=== PATIENT | male | born 1995 | race Caucasian/White ===

== ENCOUNTER 2016-05-28 19:22 | Emergency (ER) | payer OTHER ==
[~2016-05-28 19:22] MED LIST: AMOX50SS
--- NOTE | 2016-05-28 21:00 | REPUSA ---
CT of the cervical spine Clinical history: Pain. Trauma. Technique: Multiple axial CT images were obtained through the cervical spine without administration o f contrast. Coronal and sagittal 3-D reconstructed images were also obtained. Comparison: None. Findings: The cervical vertebral bodies are in satisfactory positioning and alignment. No fractures or dislocat ions are demonstrated. The odontoid process is intact. Intervertebral disc spaces are well-maintained . There is no evidence of facet subluxation. The neural foramen appear grossly patent. The cervical c ranial junction is intact. The cervical spinal canal demonstrates normal caliber and contour without evidence of spinal stenosis. The surrounding soft tissues are within normal limits. Impression: Unremarkable CT examination of the cervical spine.
--- NOTE | 2016-05-28 21:00 | REPUSA ---
CT of the head Clinical history: Headache. Trauma. Technique: Multiple axial CT images were obtained through the head without administration of contrast . Findings: The ventricles and sulci are symmetric bilaterally. There is no evidence of acute hemorrhag e or infarct. There is no midline shift, mass effect, or extra-axial fluid collection. The osseous st ructures are unremarkable. The visualized paranasal sinuses and mastoid air cells are clear. Impression: Negative study.
[2016-05-28 21:04] LABS: BASO % 0.2 % (0.0-1.0); EOS # 0.1 K/mm3 (0.0-0.50); EOS % 0.7 % (0.0-3.0); LARGE UNSTAINED CELL # 0.1 K/mm3 (0.0-0.4); LARGE UNSTAINED CELL % 0.6 % (0.0-4.0); LYMPH # 1.4 K/mm3 (1.5-6.5); LYMPH % 9.1 % (24.0-44.0); MEAN CORPUSCULAR HEMOGLOBIN 32.6 pg (27.0-33.0); MEAN CORPUSCULAR HGB CONC 34.2 g/dl (32.0-36.5); MEAN CORPUSCULAR VOLUME 95.4 fl (80.0-96.0); MONO # 0.7 K/mm3 (0.0-0.8); NEUTROPHILS # 12.4 K/mm3 (1.8-7.7); NEUTROPHILS % 84.4 % (36.0-66.0); PLATELET COUNT, AUTOMATED 211 k/mm3 (150-450); WHITE BLOOD COUNT 14.7 K/mm3 (4.0-10.0)
[2016-05-28 21:31] LABS: ANION GAP 9 MEQ/L (8-16); BLOOD UREA NITROGEN 12 MG/DL (7-18); CALCIUM LEVEL 8.7 MG/DL (8.5-10.1); CARBON DIOXIDE LEVEL 26 MEQ/L (21-32); CHLORIDE LEVEL 107 MEQ/L (98-107); CREATININE FOR GFR 0.96 MG/DL (0.70-1.30); GLOMERULAR FILTRATION RATE > 60.0 (>60); GLUCOSE, FASTING 87 MG/DL (70-105); POTASSIUM SERUM 4.1 MEQ/L (3.5-5.1); SODIUM LEVEL 142 MEQ/L (136-145)
[2016-05-28 22:09] LABS: AMPHETAMINES LEVEL URINE POSITIVE (NEGATIVE); BENZODIAZEPINES URINE NEGATIVE (NEGATIVE); COCAINE METABOLITE URINE NEGATIVE (NEGATIVE); CONTROL LINE INT CTR LINE PRESENT; METHADONE URINE NEGATIVE (NEGATIVE); OPIATES URINE POSITIVE (NEGATIVE); TRICYCLIC ANTIDEPRESS URINE NEGATIVE (NEGATIVE)
--- NOTE | 2016-05-28 22:40 | EDDOCDS ---
Nurse's Notes [facility] Name: Jarret Llanos Age: 20 yrs Sex: Male : 1995 Arrival Date: 05/28/2016 Time: 19:22 Bed 9 Private MD: Shahid Salcedo Abdul Diagnosis: Adverse effect of amphetamines;Cannabis abuse;Opioid abuse;Other seizures Presentation: 05/28 19:25 Presenting complaint: Patient states: that he had a witnessed seizure at approx 1830 ms18 tonight. Pt reportedly seized and fell hitting his head on the coffee table. Pt states that he is still groggy at this time. Adult Sepsis Screening: Patient has new or worsening altered mentation (1 point). Patient's respiratory rate is less than 22. Systolic blood pressure is greater than 100. Patient has a qSOFA score of 0- Negative Sepsis Screen. Suicide/Homicide risk assessment- the patient denies having any suicidal and/or homicidal ideations and does not present with any other emotional, behavioral or mental health complaints. 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 Transition of care: patient was not received from another setting of care. 19:25 Acuity: JAZZMINE Level 3 ms18 19:25 Method Of Arrival: Walkin/Carried/Asstd ms18 Triage Assessment: 19:29 General: Appears in no apparent distress, uncomfortable, Behavior is appropriate for ms18 age, cooperative. Pain: Location: jaw and head Pain currently is 8 out of 10 on a pain scale. HIV screening NA for this visit Offered previously. Neurological: Level of Consciousness is awake, alert, obeys commands, Oriented to person, place, time. Respiratory: Airway is patent Respiratory effort is even, unlabored. Derm: Skin is pink, warm & dry. Historical: - Allergies: no known allergies; - Home Meds: 1. Xanax 1 mg Oral tab 1 tab 3 times per day - PMHx: seizures as a child; - PSHx: Adenoidectomy; Tonsillectomy; - Social history: Smoking status: Patient uses tobacco products, current every day smoker. No barriers to communication noted, The patient speaks fluent Pashto. - Family history: Not pertinent. - : The pt / caregiver states he / she is not on anticoagulants. Home medication list is obtained from the patient. - Exposure Risk Screening:: None identified. Screenin:02 Screening information is obtained from the patient. Fall risk: No risks identified. ko2 Assistance ADL's: requires no assistance with activities of daily living. Abuse/DV Screen: The patient / caregiver reports he/she is: not in a situation that causes fear, pain or injury. Nutritional screening: No deficits noted. Advance Directives: Currently, there is no health care proxy. There is no active DNR order. There is no living will. There is no Power of [employer]. home support is adequate. Assessment: 20:02 General: Appears in no apparent distress, Behavior is appropriate for age, cooperative. ko2 Pain: Location: head Pain currently is 9 out of 10 on a pain scale. Neurological: Level of Consciousness is awake, alert, Oriented to person, place, time. Respiratory: Airway is patent Respiratory effort is even, unlabored, Respiratory pattern is regular, symmetrical. Derm: Skin is normal. Musculoskeletal: Range of motion intact in all extremities. 20:56 General: Appears in no apparent distress, Behavior is appropriate for age, cooperative. ko2 Pain: Location: head Pain currently is 9 out of 10 on a pain scale. Neurological: Level of Consciousness is awake, alert, Oriented to person, place, time. Respiratory: Airway is patent Respiratory effort is even, unlabored, Respiratory pattern is regular, symmetrical. Derm: Skin is normal. Musculoskeletal: Range of motion intact in all extremities. 21:58 General: Appears in no apparent distress, comfortable, Behavior is appropriate for age, ko2 cooperative. Neurological: Level of Consciousness is awake, alert, Oriented to person, place, time. Respiratory: Airway is patent Respiratory effort is even, unlabored, Respiratory pattern is regular, symmetrical. Derm: Skin is normal. 22:36 General: Appears in no apparent distress, comfortable, Behavior is appropriate for age, ko2 cooperative. Neurological: Level of Consciousness is awake, alert, Oriented to person, place, time. Respiratory: Airway is patent Respiratory effort is even, unlabored, Respiratory pattern is regular, symmetrical. Derm: Skin is normal. Vital Signs: 19:24 BP 136 / 74 RA Sitting (auto/lg); Pulse 107; Resp 18; Temp 97.4(O); Pulse Ox 100% on rs6 R/A; Weight 77.11 kg (R); Height 5 ft. 8 in. (172.72 cm) (R); Pain 10/10; 22:30 BP 102 / 69; Pulse 65; Resp 16; Temp 99.5(TE); Pulse Ox 97% ; Pain 6/10; ko2 19:24 Body Mass Index 25.85 (77.11 kg, 172.72 cm) rs6 Vitals: 19:24 Log In Time: May 28, 2016 at 19:24. rs6 ED Course: 19:24 Patient visited by Margi Feliciano PCA. rs6 19:24 Shahid Salcedo is Private Physician. rs6 19:24 Patient moved to Waiting rs6 19:25 Patient visited by Margi Feliciano PCA. rs6 19:25 Patient moved to Pre RCE rs6 19:27 Triage Initiated ms18 19:42 Amparo Snow,RN is Primary Nurse. cz 19:42 Patient moved to 12 cz 19:42 Patient moved to Pre RCE cz 19:43 Caro AgarwalRN is Primary Nurse. jb5 19:43 Brianne Javier RN is Primary Nurse. jb5 19:43 Patient moved to 9 jb5 19:54 Homer Sloan DO is Attending Physician. cs11 19:54 Patient visited by Homer Sloan DO. cs11 19:54 Patient visited by Brianne Javier RN. ko2 20:02 Side rails up X 1. Side rails up X2. Seizure precautions initiated. ko2 20:47 Patient visited by Brianne Javier RN. ko2 20:50 Inserted saline lock: 20 gauge in right antecubital area and blood collected. The ko2 patient tolerated the procedure well. 20:55 CBC with Diff Sent. ko2 20:56 Patient visited by Brianne Javier RN. ko2 20:56 MED Profile Sent. ko2 20:56 Lactic Acid (Dooley tube on ice) Sent. ko2 20:56 Creatine Phosphokinase Sent. ko2 20:56 Alcohol Sent. ko2 21:26 CT Head Without Contrast Returned. EDMS 21:26 CT Spine,Cervical W/o Contrast Returned. EDMS 21:40 Patient visited by Brianne Javier RN. ko2 21:51 Urine Toxicology Sent. ko2 22:19 Juany Leos MD is Referral Physician. cs11 22:34 [facility] Payment Agreement was scanned into [employer] and attached to record. zo 22:38 The patient / caregiver is instructed regarding the plan of care and ED course. ko2 22:38 Discontinued lock intact, bleeding controlled, pressure dressing applied, No ko2 redness/swelling at site. 22:38 No procedures done that require assistance. ko2 Order Results: Lab Order: CBC with Diff; SPEC'M 05/28/16 20:53 Test: WHITE BLOOD COUNT; Value: 14.7; Range: 4.0-10.0; Abnormal: Above high normal; Units: K/mm3; Status: F Test: RED BLOOD COUNT; Value: 4.77; Range: 4.30-6.10; Units: M/mm3; Status: F Test: HEMOGLOBIN; Value: 15.6; Range: 14.0-18.0; Units: g/dl; Status: F Test: HEMATOCRIT; Value: 45.5; Range: 42.0-52.0; Units: %; Status: F Test: MEAN CORPUSCULAR VOLUME; Value: 95.4; Range: 80.0-96.0; Units: fl; Status: F Test: MEAN CORPUSCULAR HEMOGLOBIN; Value: 32.6; Range: 27.0-33.0; Units: pg; Status: F Test: MEAN CORPUSCULAR HGB CONC; Value: 34.2; Range: 32.0-36.5; Units: g/dl; Status: F Test: RED CELL DISTRIBUTION WIDTH; Value: 12.0; Range: 11.5-14.5; Units: %; Status: F Test: PLATELET COUNT, AUTOMATED; Value: 211; Range: 150-450; Units: k/mm3; Status: F Test: NEUTROPHILS %; Value: 84.4; Range: 36.0-66.0; Abnormal: Above high normal; Units: %; Status: F Test: LYMPH %; Value: 9.1; Range: 24.0-44.0; Abnormal: Below low normal; Units: %; Status: F Test: MONO %; Value: 5.0; Range: 0.0-5.0; Units: %; Status: F Test: EOS %; Value: 0.7; Range: 0.0-3.0; Units: %; Status: F Test: BASO %; Value: 0.2; Range: 0.0-1.0; Units: %; Status: F Test: LARGE UNSTAINED CELL %; Value: 0.6; Range: 0.0-4.0; Units: %; Status: F Test: NEUTROPHILS #; Value: 12.4; Range: 1.8-7.7; Abnormal: Above high normal; Units: K/mm3; Status: F Test: LYMPH #; Value: 1.4; Range: 1.5-6.5; Abnormal: Below low normal; Units: K/mm3; Status: F Test: MONO #; Value: 0.7; Range: 0.0-0.8; Units: K/mm3; Status: F Test: EOS #; Value: 0.1; Range: 0.0-0.50; Units: K/mm3; Status: F Test: BASO #; Value: 0.0; Range: 0.0-0.2; Units: K/mm3; Status: F Test: LARGE UNSTAINED CELL #; Value: 0.1; Range: 0.0-0.4; Units: K/mm3; Status: F Lab Order: MED Profile; SPEC'M 05/28/16 20:53 Test: GLUCOSE, FASTING; Value: 87; Range: 70-105; Units: MG/DL; Status: F Test: BLOOD UREA NITROGEN; Value: 12; Range: 7-18; Units: MG/DL; Status: F Test: CREATININE FOR GFR; Value: 0.96; Range: 0.70-1.30; Units: MG/DL; Status: F Test: GLOMERULAR FILTRATION RATE; Value: > 60.0; Range: >60; Status: F Test: SODIUM LEVEL; Value: 142; Range: 136-145; Units: MEQ/L; Status: F Test: POTASSIUM SERUM; Value: 4.1; Range: 3.5-5.1; Units: MEQ/L; Status: F Test: CHLORIDE LEVEL; Value: 107; Range: 98-107; Units: MEQ/L; Status: F Test: CARBON DIOXIDE LEVEL; Value: 26; Range: 21-32; Units: MEQ/L; Status: F Test: ANION GAP; Value: 9; Range: 8-16; Units: MEQ/L; Status: F Test: CALCIUM LEVEL; Value: 8.7; Range: 8.5-10.1; Units: MG/DL; Status: F Test Note: ; Units are mL/min/1.73 m2 Chronic Kidney Disease Staging per NKF: Stage I & II GFR >=60 Normal to Mildly Decreased Stage III GFR 30-59 Moderately Decreased Stage IV GFR 15-29 Severely Decreased Stage V GFR <15 Very Little GFR Left ESRD GFR <15 on FORENSIC ECONOMIST Lab Order: Lactic Acid (Dooley tube on ice); SPEC' 05/28/16 20:53 Test: LACTIC ACID SEPSIS PROTOCOL; Value: 1.6; Range: 0.4-2.0; Units: MMOL/L; Status: F Lab Order: Creatine Phosphokinase; SPEC' 05/28/16 20:53 Test: CPK CREATINE PHOSPHOKINASE; Value: 109; Range: 39-308; Units: U/L; Status: F Lab Order: Alcohol; SPEC' 05/28/16 20:53 Test: ETHYL ALCOHOL (ETHANOL); Value: < 0.003; Range: 0.000-0.010; Units: %; Status: F Lab Order: Urine Toxicology; [facility]' 05/28/16 21:49 Test: AMPHETAMINES LEVEL URINE; Value: POSITIVE; Range: NEGATIVE; Abnormal: Above high normal; Status: F Test: BARBITURATES URINE; Value: NEGATIVE; Range: NEGATIVE; Status: F Test: BENZODIAZEPINES URINE; Value: NEGATIVE; Range: NEGATIVE; Status: F Test: CANNABINOIDS URINE; Value: POSITIVE; Range: NEGATIVE; Abnormal: Above high normal; Status: F Test: COCAINE METABOLITE URINE; Value: NEGATIVE; Range: NEGATIVE; Status: F Test: METHADONE URINE; Value: NEGATIVE; Range: NEGATIVE; Status: F Test: OPIATES URINE; Value: POSITIVE; Range: NEGATIVE; Abnormal: Above high normal; Status: F Test: TRICYCLIC ANTIDEPRESS URINE; Value: NEGATIVE; Range: NEGATIVE; Status: F Test Note: ; FALSE POSITIVE RESULTS CAN BE CAUSED BY THE USE OF PANTOPRAZOLE (PROTONIX). Radiology Order: CT Head Without Contrast Test: CT Head Without Contrast REASON FOR EXAMINATION: Trauma; ; CT of the head; Clinical history: Headache. Trauma.; Technique: Multiple axial CT images were obtained through the head without administration of contrast; .; Findings: The ventricles and sulci are symmetric bilaterally. There is no evidence of acute hemorrhag; e or infarct. There is no midline shift, mass effect, or extra-axial fluid collection. The osseous st; ructures are unremarkable. The visualized paranasal sinuses and mastoid air cells are clear.; Impression: Negative study.; ; Radiology Order: CT Spine,Cervical W/o Contrast Test: CT Spine,Cervical W/o Contrast REASON FOR EXAMINATION: Trauma; ; CT of the cervical spine; Clinical history: Pain. Trauma.; Technique: Multiple axial CT images were obtained through the cervical spine without administration o; f contrast. Coronal and sagittal 3-D reconstructed images were also obtained.; Comparison: None.; Findings:; The cervical vertebral bodies are in satisfactory positioning and alignment. No fractures or dislocat; ions are demonstrated. The odontoid process is intact. Intervertebral disc spaces are well-maintained; . There is no evidence of facet subluxation. The neural foramen appear grossly patent. The cervical c; ranial junction is intact. The cervical spinal canal demonstrates normal caliber and contour without; evidence of spinal stenosis. The surrounding soft tissues are within normal limits.; Impression: Unremarkable CT examination of the cervical spine.; ; Outcome: 22:20 Discharge ordered by Provider. cs11 22:38 Discharge Assessment: Patient awake, alert and oriented x 3. No cognitive and/or ko2 functional deficits noted. Patient verbalized understanding of disposition instructions. patient administered narcotics - no. The following High Risk Discharge criteria are identified: None. Discharged to home ambulatory, with significant other. Condition: stable. Discharge instructions given to patient, Instructed on discharge instructions, follow up and referral plans. Demonstrated understanding of instructions, Pt was receptive of discharge instructions/ teaching. CT Study completed. Property sent home with patient. 22:39 Patient left the ED. ko2 Signatures: Dispatcher [employer] EDMS Frantz Parker, RN RN Gloria Hathaway, FLAME HARDENER FLAME HARDENER jb5 Musa Brown Craig, DO DO cs11 Brianne Javier RN RN ko2 Rosita Agarwal RN RN ms18 Margi Feliciano, FLAME HARDENER FLAME HARDENER rs6 MTDD
--- NOTE | 2016-05-28 22:40 | EDDOCDS ---
Physician Documentation [facility] Name: Jarret Llanos Age: 20 yrs Sex: Male : 1995 Arrival Date: 05/28/2016 Time: 19:22 Bed 9 Private MD: Shahid Salcedo Abdul Disposition: 05/28/16 22:20 Discharged to Home/Self Care. Impression: Adverse effect of amphetamines, Cannabis abuse, Opioid abuse, Other seizures. - Condition is Stable. - Medication Reconciliation, Local Pharmacy Hours form. - Follow up: Juany Leos MD; When: Call to arrange an appointment; Reason: Recheck today's complaints. - Problem is an ongoing problem. - Symptoms have improved. Historical: - Allergies: no known allergies; - Home Meds: 1. Xanax 1 mg Oral tab 1 tab 3 times per day - PMHx: seizures as a child; - PSHx: Adenoidectomy; Tonsillectomy; - Social history: Smoking status: Patient uses tobacco products, current every day smoker. No barriers to communication noted, The patient speaks fluent Yi. - Family history: Not pertinent. - : The pt / caregiver states he / she is not on anticoagulants. Home medication list is obtained from the patient. - Exposure Risk Screening:: None identified. Vital Signs: 05/28 19:24 BP 136 / 74 RA Sitting (auto/lg); Pulse 107; Resp 18; Temp 97.4(O); Pulse Ox 100% on rs6 R/A; Weight 77.11 kg / 170 lbs (R); Height 5 ft. 8 in. (172.72 cm) (R); Pain 10/10; 22:30 BP 102 / 69; Pulse 65; Resp 16; Temp 99.5(TE); Pulse Ox 97% ; Pain 6/10; ko2 19:24 Body Mass Index 25.85 (77.11 kg, 172.72 cm) rs6 MDM: 20:12 IV Saline Lock ordered. cs11 20:14 CBC with Diff Ordered. EDMS 20:14 MED Profile Ordered. EDMS 20:14 Lactic Acid (Dooley tube on ice) Ordered. EDMS 20:14 Creatine Phosphokinase Ordered. EDMS 20:14 Alcohol Ordered. EDMS 20:14 Urine Toxicology Ordered. EDMS 20:14 CT Head Without Contrast Ordered. EDMS 20:14 CT Spine,Cervical W/o Contrast Ordered. EDMS 21:51 CBC with Diff Reviewed. cs11 21:51 MED Profile Reviewed. cs11 21:51 Lactic Acid (Dooley tube on ice) Reviewed. cs11 21:51 Creatine Phosphokinase Reviewed. cs11 21:51 Alcohol Reviewed. cs11 21:51 CT Head Without Contrast Reviewed. cs11 21:51 CT Spine,Cervical W/o Contrast Reviewed. cs11 22:12 Urine Toxicology Reviewed. cs11 22:33 Financial registration complete. zo 22:34 [facility] Payment Agreement was scanned into [employer] and attached to record. zo Signatures: Dispatcher [employer] EDMS Musa Brown zo Homer Sloan DO DO cs11 Brianne Javier RN RN ko2 Rosita Agarwal RN RN ms18 The chart was reviewed and I authenticate all verbal orders and agree with the evaluation and treatment provided.Attachments: 22:34 [facility] Payment Agreement zo MTDD
--- NOTE | 2016-05-30 23:40 | EDDOCDS ---
Physician Documentation [facility] Name: Jarret Llanos Age: 20 yrs Sex: Male : 1995 Arrival Date: 05/28/2016 Time: 19:22 Bed 9 Private MD: Shahid Salcedo Abdul Disposition: 05/28/16 22:20 Discharged to Home/Self Care. Impression: Adverse effect of amphetamines, Cannabis abuse, Opioid abuse, Other seizures. - Condition is Stable. - Medication Reconciliation, Local Pharmacy Hours form. - Follow up: Juany Leos MD; When: Call to arrange an appointment; Reason: Recheck today's complaints. - Problem is an ongoing problem. - Symptoms have improved. Historical: - Allergies: no known allergies; - Home Meds: 1. Xanax 1 mg Oral tab 1 tab 3 times per day - PMHx: seizures as a child; - PSHx: Adenoidectomy; Tonsillectomy; - Social history: Smoking status: Patient uses tobacco products, current every day smoker. No barriers to communication noted, The patient speaks fluent Greek. - Family history: Not pertinent. - : The pt / caregiver states he / she is not on anticoagulants. Home medication list is obtained from the patient. - Exposure Risk Screening:: None identified. Vital Signs: 05/28 19:24 BP 136 / 74 RA Sitting (auto/lg); Pulse 107; Resp 18; Temp 97.4(O); Pulse Ox 100% on rs6 R/A; Weight 77.11 kg / 170 lbs (R); Height 5 ft. 8 in. (172.72 cm) (R); Pain 10/10; 22:30 BP 102 / 69; Pulse 65; Resp 16; Temp 99.5(TE); Pulse Ox 97% ; Pain 6/10; ko2 19:24 Body Mass Index 25.85 (77.11 kg, 172.72 cm) rs6 MDM: 20:12 IV Saline Lock ordered. cs11 20:14 CBC with Diff Ordered. EDMS 20:14 MED Profile Ordered. EDMS 20:14 Lactic Acid (Dooley tube on ice) Ordered. EDMS 20:14 Creatine Phosphokinase Ordered. EDMS 20:14 Alcohol Ordered. EDMS 20:14 Urine Toxicology Ordered. EDMS 20:14 CT Head Without Contrast Ordered. EDMS 20:14 CT Spine,Cervical W/o Contrast Ordered. EDMS 21:51 CBC with Diff Reviewed. cs11 21:51 MED Profile Reviewed. cs11 21:51 Lactic Acid (Dooley tube on ice) Reviewed. cs11 21:51 Creatine Phosphokinase Reviewed. cs11 21:51 Alcohol Reviewed. cs11 21:51 CT Head Without Contrast Reviewed. cs11 21:51 CT Spine,Cervical W/o Contrast Reviewed. cs11 22:12 Urine Toxicology Reviewed. cs11 22:33 Financial registration complete. zo :34 [facility] Payment Agreement was scanned into [employer] and attached to record. zo 05/29 19:03 T-Sheet-- Draft Copy was scanned into [employer] and attached to record. klr Signatures: Dispatcher [employer] EDMS Musa Brown Craig, DO DO cs11 Brianne JavierRN RN ko2 Rosita Agarwal RN RN ms18 Barb Sevilla The chart was reviewed and I authenticate all verbal orders and agree with the evaluation and treatment provided.Attachments: 05/28 22:34 [facility] Payment Agreement zo 05/29 19:03 T-Sheet-- Draft Copy klr Chart Complete MTDD
--- NOTE | 2016-05-30 23:40 | EDDOCDS ---
Physician Documentation [facility] Name: Jarret Llanos Age: 20 yrs Sex: Male : 1995 Arrival Date: 05/28/2016 Time: 19:22 Bed 9 Private MD: Shahid Salcedo Abdul Disposition: 05/28/16 22:20 Discharged to Home/Self Care. Impression: Adverse effect of amphetamines, Cannabis abuse, Opioid abuse, Other seizures. - Condition is Stable. - Medication Reconciliation, Local Pharmacy Hours form. - Follow up: Juany Leos MD; When: Call to arrange an appointment; Reason: Recheck today's complaints. - Problem is an ongoing problem. - Symptoms have improved. Historical: - Allergies: no known allergies; - Home Meds: 1. Xanax 1 mg Oral tab 1 tab 3 times per day - PMHx: seizures as a child; - PSHx: Adenoidectomy; Tonsillectomy; - Social history: Smoking status: Patient uses tobacco products, current every day smoker. No barriers to communication noted, The patient speaks fluent Armenian. - Family history: Not pertinent. - : The pt / caregiver states he / she is not on anticoagulants. Home medication list is obtained from the patient. - Exposure Risk Screening:: None identified. Vital Signs: 05/28 19:24 BP 136 / 74 RA Sitting (auto/lg); Pulse 107; Resp 18; Temp 97.4(O); Pulse Ox 100% on rs6 R/A; Weight 77.11 kg / 170 lbs (R); Height 5 ft. 8 in. (172.72 cm) (R); Pain 10/10; 22:30 BP 102 / 69; Pulse 65; Resp 16; Temp 99.5(TE); Pulse Ox 97% ; Pain 6/10; ko2 19:24 Body Mass Index 25.85 (77.11 kg, 172.72 cm) rs6 MDM: 20:12 IV Saline Lock ordered. cs11 20:14 CBC with Diff Ordered. EDMS 20:14 MED Profile Ordered. EDMS 20:14 Lactic Acid (Dooley tube on ice) Ordered. EDMS 20:14 Creatine Phosphokinase Ordered. EDMS 20:14 Alcohol Ordered. EDMS 20:14 Urine Toxicology Ordered. EDMS 20:14 CT Head Without Contrast Ordered. EDMS 20:14 CT Spine,Cervical W/o Contrast Ordered. EDMS 21:51 CBC with Diff Reviewed. cs11 21:51 MED Profile Reviewed. cs11 21:51 Lactic Acid (Dooley tube on ice) Reviewed. cs11 21:51 Creatine Phosphokinase Reviewed. cs11 21:51 Alcohol Reviewed. cs11 21:51 CT Head Without Contrast Reviewed. cs11 21:51 CT Spine,Cervical W/o Contrast Reviewed. cs11 22:12 Urine Toxicology Reviewed. cs11 22:33 Financial registration complete. zo :34 [facility] Payment Agreement was scanned into [employer] and attached to record. zo 05/29 19:03 T-Sheet-- Draft Copy was scanned into [employer] and attached to record. klr Signatures: Dispatcher [employer] EDMS Musa Brown Craig, DO DO cs11 Brianne JavierRN RN ko2 Rosita Agarwal RN RN ms18 Barb Sevilla The chart was reviewed and I authenticate all verbal orders and agree with the evaluation and treatment provided.Attachments: 05/28 22:34 [facility] Payment Agreement zo 05/29 19:03 T-Sheet-- Draft Copy klr Chart Complete MTDD
--- NOTE | 2016-05-30 23:40 | EDDOCDS ---
Nurse's Notes [facility] Name: Jarret Llanos Age: 20 yrs Sex: Male : 1995 Arrival Date: 05/28/2016 Time: 19:22 Bed 9 Private MD: Shahid Salcedo Abdul Diagnosis: Adverse effect of amphetamines;Cannabis abuse;Opioid abuse;Other seizures Presentation: 05/28 19:25 Presenting complaint: Patient states: that he had a witnessed seizure at approx 1830 ms18 tonight. Pt reportedly seized and fell hitting his head on the coffee table. Pt states that he is still groggy at this time. Adult Sepsis Screening: Patient has new or worsening altered mentation (1 point). Patient's respiratory rate is less than 22. Systolic blood pressure is greater than 100. Patient has a qSOFA score of 0- Negative Sepsis Screen. Suicide/Homicide risk assessment- the patient denies having any suicidal and/or homicidal ideations and does not present with any other emotional, behavioral or mental health complaints. Status: Patient is not a vp customer service or dependent. Transition of care: patient was not received from another setting of care. 19:25 Acuity: JAZZMINE Level 3 ms18 19:25 Method Of Arrival: Walkin/Carried/Asstd ms18 Triage Assessment: 19:29 General: Appears in no apparent distress, uncomfortable, Behavior is appropriate for ms18 age, cooperative. Pain: Location: jaw and head Pain currently is 8 out of 10 on a pain scale. HIV screening NA for this visit Offered previously. Neurological: Level of Consciousness is awake, alert, obeys commands, Oriented to person, place, time. Respiratory: Airway is patent Respiratory effort is even, unlabored. Derm: Skin is pink, warm & dry. Historical: - Allergies: no known allergies; - Home Meds: 1. Xanax 1 mg Oral tab 1 tab 3 times per day - PMHx: seizures as a child; - PSHx: Adenoidectomy; Tonsillectomy; - Social history: Smoking status: Patient uses tobacco products, current every day smoker. No barriers to communication noted, The patient speaks fluent Hebrew. - Family history: Not pertinent. - : The pt / caregiver states he / she is not on anticoagulants. Home medication list is obtained from the patient. - Exposure Risk Screening:: None identified. Screenin:02 Screening information is obtained from the patient. Fall risk: No risks identified. ko2 Assistance ADL's: requires no assistance with activities of daily living. Abuse/DV Screen: The patient / caregiver reports he/she is: not in a situation that causes fear, pain or injury. Nutritional screening: No deficits noted. Advance Directives: Currently, there is no health care proxy. There is no active DNR order. There is no living will. There is no Power of Inspector Of Dredging. home support is adequate. Assessment: 20:02 General: Appears in no apparent distress, Behavior is appropriate for age, cooperative. ko2 Pain: Location: head Pain currently is 9 out of 10 on a pain scale. Neurological: Level of Consciousness is awake, alert, Oriented to person, place, time. Respiratory: Airway is patent Respiratory effort is even, unlabored, Respiratory pattern is regular, symmetrical. Derm: Skin is normal. Musculoskeletal: Range of motion intact in all extremities. 20:56 General: Appears in no apparent distress, Behavior is appropriate for age, cooperative. ko2 Pain: Location: head Pain currently is 9 out of 10 on a pain scale. Neurological: Level of Consciousness is awake, alert, Oriented to person, place, time. Respiratory: Airway is patent Respiratory effort is even, unlabored, Respiratory pattern is regular, symmetrical. Derm: Skin is normal. Musculoskeletal: Range of motion intact in all extremities. 21:58 General: Appears in no apparent distress, comfortable, Behavior is appropriate for age, ko2 cooperative. Neurological: Level of Consciousness is awake, alert, Oriented to person, place, time. Respiratory: Airway is patent Respiratory effort is even, unlabored, Respiratory pattern is regular, symmetrical. Derm: Skin is normal. 22:36 General: Appears in no apparent distress, comfortable, Behavior is appropriate for age, ko2 cooperative. Neurological: Level of Consciousness is awake, alert, Oriented to person, place, time. Respiratory: Airway is patent Respiratory effort is even, unlabored, Respiratory pattern is regular, symmetrical. Derm: Skin is normal. Vital Signs: 19:24 BP 136 / 74 RA Sitting (auto/lg); Pulse 107; Resp 18; Temp 97.4(O); Pulse Ox 100% on rs6 R/A; Weight 77.11 kg (R); Height 5 ft. 8 in. (172.72 cm) (R); Pain 10/10; 22:30 BP 102 / 69; Pulse 65; Resp 16; Temp 99.5(TE); Pulse Ox 97% ; Pain 6/10; ko2 19:24 Body Mass Index 25.85 (77.11 kg, 172.72 cm) rs6 Vitals: 19:24 Log In Time: May 28, 2016 at 19:24. rs6 ED Course: 19:24 Patient visited by Margi Feliciano PCA. rs6 19:24 Shahid Salcedo is Private Physician. rs6 19:24 Patient moved to Waiting rs6 19:25 Patient visited by Margi Feliciano PCA. rs6 19:25 Patient moved to Pre RCE rs6 19:27 Triage Initiated ms18 19:42 Amparo Snow,RN is Primary Nurse. cz 19:42 Patient moved to 12 cz 19:42 Patient moved to Pre RCE cz 19:43 Caro AgarwalRN is Primary Nurse. jb5 19:43 Brianne Javier RN is Primary Nurse. jb5 19:43 Patient moved to 9 jb5 19:54 Homer Sloan DO is Attending Physician. cs11 19:54 Patient visited by Homer Sloan DO. cs11 19:54 Patient visited by Brianne Javier RN. ko2 20:02 Side rails up X 1. Side rails up X2. Seizure precautions initiated. ko2 20:47 Patient visited by Brianne Javier RN. ko2 20:50 Inserted saline lock: 20 gauge in right antecubital area and blood collected. The ko2 patient tolerated the procedure well. 20:55 CBC with Diff Sent. ko2 20:56 Patient visited by Brianne Javier RN. ko2 20:56 MED Profile Sent. ko2 20:56 Lactic Acid (Dooley tube on ice) Sent. ko2 20:56 Creatine Phosphokinase Sent. ko2 20:56 Alcohol Sent. ko2 21:26 CT Head Without Contrast Returned. EDMS 21:26 CT Spine,Cervical W/o Contrast Returned. EDMS 21:40 Patient visited by Brianne Javier RN. ko2 21:51 Urine Toxicology Sent. ko2 22:19 Juany Leos MD is Referral Physician. cs11 22:34 [facility] Payment Agreement was scanned into [employer] and attached to record. zo 22:38 The patient / caregiver is instructed regarding the plan of care and ED course. ko2 22:38 Discontinued lock intact, bleeding controlled, pressure dressing applied, No ko2 redness/swelling at site. 22:38 No procedures done that require assistance. ko2 05/29 19:03 T-Sheet-- Draft Copy was scanned into [employer] and attached to record. klr Order Results: Lab Order: CBC with Diff; SPEC'M 05/28/16 20:53 Test: WHITE BLOOD COUNT; Value: 14.7; Range: 4.0-10.0; Abnormal: Above high normal; Units: K/mm3; Status: F Test: RED BLOOD COUNT; Value: 4.77; Range: 4.30-6.10; Units: M/mm3; Status: F Test: HEMOGLOBIN; Value: 15.6; Range: 14.0-18.0; Units: g/dl; Status: F Test: HEMATOCRIT; Value: 45.5; Range: 42.0-52.0; Units: %; Status: F Test: MEAN CORPUSCULAR VOLUME; Value: 95.4; Range: 80.0-96.0; Units: fl; Status: F Test: MEAN CORPUSCULAR HEMOGLOBIN; Value: 32.6; Range: 27.0-33.0; Units: pg; Status: F Test: MEAN CORPUSCULAR HGB CONC; Value: 34.2; Range: 32.0-36.5; Units: g/dl; Status: F Test: RED CELL DISTRIBUTION WIDTH; Value: 12.0; Range: 11.5-14.5; Units: %; Status: F Test: PLATELET COUNT, AUTOMATED; Value: 211; Range: 150-450; Units: k/mm3; Status: F Test: NEUTROPHILS %; Value: 84.4; Range: 36.0-66.0; Abnormal: Above high normal; Units: %; Status: F Test: LYMPH %; Value: 9.1; Range: 24.0-44.0; Abnormal: Below low normal; Units: %; Status: F Test: MONO %; Value: 5.0; Range: 0.0-5.0; Units: %; Status: F Test: EOS %; Value: 0.7; Range: 0.0-3.0; Units: %; Status: F Test: BASO %; Value: 0.2; Range: 0.0-1.0; Units: %; Status: F Test: LARGE UNSTAINED CELL %; Value: 0.6; Range: 0.0-4.0; Units: %; Status: F Test: NEUTROPHILS #; Value: 12.4; Range: 1.8-7.7; Abnormal: Above high normal; Units: K/mm3; Status: F Test: LYMPH #; Value: 1.4; Range: 1.5-6.5; Abnormal: Below low normal; Units: K/mm3; Status: F Test: MONO #; Value: 0.7; Range: 0.0-0.8; Units: K/mm3; Status: F Test: EOS #; Value: 0.1; Range: 0.0-0.50; Units: K/mm3; Status: F Test: BASO #; Value: 0.0; Range: 0.0-0.2; Units: K/mm3; Status: F Test: LARGE UNSTAINED CELL #; Value: 0.1; Range: 0.0-0.4; Units: K/mm3; Status: F Lab Order: [facility]; SPEC'M 05/28/16 20:53 Test: GLUCOSE, FASTING; Value: 87; Range: 70-105; Units: MG/DL; Status: F Test: BLOOD UREA NITROGEN; Value: 12; Range: 7-18; Units: MG/DL; Status: F Test: CREATININE FOR GFR; Value: 0.96; Range: 0.70-1.30; Units: MG/DL; Status: F Test: GLOMERULAR FILTRATION RATE; Value: > 60.0; Range: >60; Status: F Test: SODIUM LEVEL; Value: 142; Range: 136-145; Units: MEQ/L; Status: F Test: POTASSIUM SERUM; Value: 4.1; Range: 3.5-5.1; Units: MEQ/L; Status: F Test: CHLORIDE LEVEL; Value: 107; Range: 98-107; Units: MEQ/L; Status: F Test: CARBON DIOXIDE LEVEL; Value: 26; Range: 21-32; Units: MEQ/L; Status: F Test: ANION GAP; Value: 9; Range: 8-16; Units: MEQ/L; Status: F Test: CALCIUM LEVEL; Value: 8.7; Range: 8.5-10.1; Units: MG/DL; Status: F Test Note: ; Units are mL/min/1.73 m2 Chronic Kidney Disease Staging per NKF: Stage I & II GFR >=60 Normal to Mildly Decreased Stage III GFR 30-59 Moderately Decreased Stage IV GFR 15-29 Severely Decreased Stage V GFR <15 Very Little GFR Left ESRD GFR <15 on [employer]BER[employer] Lab Order: Lactic Acid (Dooley tube on ice); SPEC' 05/28/16 20:53 Test: LACTIC ACID SEPSIS PROTOCOL; Value: 1.6; Range: 0.4-2.0; Units: MMOL/L; Status: F Lab Order: Creatine Phosphokinase; SPEC' 05/28/16 20:53 Test: CPK CREATINE PHOSPHOKINASE; Value: 109; Range: 39-308; Units: U/L; Status: F Lab Order: Alcohol; SPEC' 05/28/16 20:53 Test: ETHYL ALCOHOL (ETHANOL); Value: < 0.003; Range: 0.000-0.010; Units: %; Status: F Lab Order: Urine Toxicology; SPEC' 05/28/16 21:49 Test: AMPHETAMINES LEVEL URINE; Value: POSITIVE; Range: NEGATIVE; Abnormal: Above high normal; Status: F Test: BARBITURATES URINE; Value: NEGATIVE; Range: NEGATIVE; Status: F Test: BENZODIAZEPINES URINE; Value: NEGATIVE; Range: NEGATIVE; Status: F Test: CANNABINOIDS URINE; Value: POSITIVE; Range: NEGATIVE; Abnormal: Above high normal; Status: F Test: COCAINE METABOLITE URINE; Value: NEGATIVE; Range: NEGATIVE; Status: F Test: METHADONE URINE; Value: NEGATIVE; Range: NEGATIVE; Status: F Test: OPIATES URINE; Value: POSITIVE; Range: NEGATIVE; Abnormal: Above high normal; Status: F Test: TRICYCLIC ANTIDEPRESS URINE; Value: NEGATIVE; Range: NEGATIVE; Status: F Test Note: ; FALSE POSITIVE RESULTS CAN BE CAUSED BY THE USE OF PANTOPRAZOLE (PROTONIX). Radiology Order: CT Head Without Contrast Test: CT Head Without Contrast REASON FOR EXAMINATION: Trauma; ; CT of the head; Clinical history: Headache. Trauma.; Technique: Multiple axial CT images were obtained through the head without administration of contrast; .; Findings: The ventricles and sulci are symmetric bilaterally. There is no evidence of acute hemorrhag; e or infarct. There is no midline shift, mass effect, or extra-axial fluid collection. The osseous st; ructures are unremarkable. The visualized paranasal sinuses and mastoid air cells are clear.; Impression: Negative study.; ; Radiology Order: CT Spine,Cervical W/o Contrast Test: CT Spine,Cervical W/o Contrast REASON FOR EXAMINATION: Trauma; ; CT of the cervical spine; Clinical history: Pain. Trauma.; Technique: Multiple axial CT images were obtained through the cervical spine without administration o; f contrast. Coronal and sagittal 3-D reconstructed images were also obtained.; Comparison: None.; Findings:; The cervical vertebral bodies are in satisfactory positioning and alignment. No fractures or dislocat; ions are demonstrated. The odontoid process is intact. Intervertebral disc spaces are well-maintained; . There is no evidence of facet subluxation. The neural foramen appear grossly patent. The cervical c; ranial junction is intact. The cervical spinal canal demonstrates normal caliber and contour without; evidence of spinal stenosis. The surrounding soft tissues are within normal limits.; Impression: Unremarkable CT examination of the cervical spine.; ; Outcome: 05/28 22:20 Discharge ordered by Provider. cs11 22:38 Discharge Assessment: Patient awake, alert and oriented x 3. No cognitive and/or ko2 functional deficits noted. Patient verbalized understanding of disposition instructions. patient administered narcotics - no. The following High Risk Discharge criteria are identified: None. Discharged to home ambulatory, with significant other. Condition: stable. Discharge instructions given to patient, Instructed on discharge instructions, follow up and referral plans. Demonstrated understanding of instructions, Pt was receptive of discharge instructions/ teaching. CT Study completed. Property sent home with patient. 22:39 Patient left the ED. ko2 Signatures: Dispatcher [employer] EDMS Frantz Parker, Gloria Palafox RN, CL NUTRITION PROGRAM INSTRUCTOR jb5 Musa Brown Craig, DO DO cs11 Brianne Javier RN RN ko2 Rosita Agarwal,CRISTIAN RN ms18 Margi Feliciano, NUTRITION PROGRAM INSTRUCTOR NUTRITION PROGRAM INSTRUCTOR rs6 Barb Sevilla Chart Complete MTDD
== END 2016-05-28 22:39 | disposition home or self-care (01) ==
LOC: M ED 19:22
DX: F19.10 Other psychoactive substance abuse, uncomplicated (principal); F12.10 Cannabis abuse, uncomplicated; F11.10 Opioid abuse, uncomplicated; R56.9 Unspecified convulsions; F41.9 Anxiety disorder, unspecified; Z79.899 Other long term (current) drug therapy; F17.210 Nicotine dependence, cigarettes, uncomplicated
CPT/HCPCS: 36415; 70450; 72125; 80048; 80306; 82550; 83605; 85025; 99284; G0480

== ENCOUNTER 2016-09-10 10:25 | Emergency (ER) | payer OTHER ==
[~2016-09-10] VITALS: Ht 172.7 cm; Wt 72.6 kg
[2016-09-10 10:26] VITALS: BP 133/74
[2016-09-10] MEDS ORDERED: METO37.5 PO (10:35)
[2016-09-10] MEDS ORDERED: ALPR1TAB3 PO (10:35)
[2016-09-10] MEDS ORDERED: LIDOCAINE 1% MDV 20ML VIAL SC ONE (11:30)
--- NOTE | 2016-09-10 11:43 | REP ---
Clinical: Trauma. Technique: AP, lateral, bilateral oblique views of the left fifth digit. Findings: Laceration overlies the proximal phalanx. No foreign body. No acute fracture or dislocation. Impression: Laceration. Signed by Alcon Fernandez MD 09/10/2016 11:33 A
[2016-09-10] MEDS ORDERED: IBUPROFEN 800 MG TAB PO ONE (11:45)
[2016-09-10] MEDS ORDERED: ADACEL/BOOSTRIX VACCINE (DIPHTH/PERTUSS/ACELL/TETANUS)0.5ML SYR (90715) IM ONE (11:45)
== END 2016-09-10 12:09 | disposition home or self-care (01) ==
LOC: M ED 12:08
DX: S61.216A Laceration without foreign body of right little finger without damage to nail, initial encounter (principal); W23.0XXA Caught, crushed, jammed, or pinched between moving objects, initial encounter; Y92.099 Unspecified place in other non-institutional residence as the place of occurrence of the external cause; Y93.89 Activity, other specified; Y99.9 Unspecified external cause status; F17.200 Nicotine dependence, unspecified, uncomplicated

== ENCOUNTER → 2020-01-03 | Outpatient (CLI) | payer OTHER ==
[~2020-01-03] MED LIST changes: +ALPR1TAB3 PO; +ELIQ5TAB PO; +METO37.5 PO
== END ==
LOC: M LABSMTC 13:26
PROVIDERS: ATTEND Family Medicine
DX: Z20.828 Contact with and (suspected) exposure to other viral communicable diseases (principal)
CPT/HCPCS: C9803; U0003

== ENCOUNTER → 2020-02-23 | Outpatient (CLI) | payer OTHER ==
--- NOTE | 2020-02-23 14:22 | REP ---
INDICATION: HAND AND WRIST PAIN. COMPARISON: None. TECHNIQUE: Four views FINDINGS: Four views of the right hand demonstrate minimal soft tissue swelling dorsally over the metacarpals. Bones and joints are unremarkable.. No fracture or subluxation is seen. No opaque foreign body noted. IMPRESSION: Minimal soft tissue swelling. No fracture, subluxation or other acute bony abnormality.. <Electronically signed by Gavin Ojeda > 02/23/20 [id number]
--- NOTE | 2020-02-23 14:23 | REP ---
INDICATION: HAND AND WRIST PAIN. COMPARISON: None. TECHNIQUE: Four views FINDINGS: Four views of the right wrist demonstrate normal bones, joints, and soft tissues. No fracture or subluxation is seen. IMPRESSION: Negative right wrist radiographs. <Electronically signed by Gavin Ojeda > 02/23/20 0714
== END ==
LOC: M WUC 13:38
PROVIDERS: ATTEND Nurse Practitioner Family
DX: M25.531 Pain in right wrist (principal); M79.641 Pain in right hand

== ENCOUNTER 2020-03-02 13:16 | Emergency (ER) | payer OTHER ==
[~2020-03-02] VITALS: Ht 172.7 cm; Wt 73.5 kg
[~2020-03-02 13:16] MED LIST changes: -ELIQ5TAB PO
[2020-03-02 14:38] VITALS: BP 145/80
--- NOTE | 2020-03-02 14:49 | REP ---
INDICATION: pain. COMPARISON: None. TECHNIQUE: Compression ultrasound with duplex Doppler interrogation and color flow imaging provided. FINDINGS: There is echogenic thrombus and incomplete compression from the proximal femoral vein to the popliteal vein. Common femoral vein is preserved. Caliber of the femoral vein is diminished. Color images show some areas with diminished color flow and Doppler tracing with some respiratory variation and areas of decreased augmentation in the mid to distal femoral vein. IMPRESSION: 1. Evidence of deep vein thrombosis in the left lower extremity. Findings may be acute or acute on chronic given the appearance above. Involves proximal femoral vein to the proximal popliteal vein. Common femoral vein shows no thrombus and normal diameter and compression. <Electronically signed by Slava Bourgeois > 03/02/20 [id number]
[2020-03-02] MEDS ORDERED: ELIQ5TAB PO (15:08)
[2020-03-02 15:31] LABS: INR 0.95; PROTHROMBIN TIME 12.9 SECONDS (12.5-14.3)
[2020-03-02 15:32] LABS: PARTIAL THROMBOPLASTIN TIME 24.8 SECONDS (24.2-38.5)
[2020-03-05 10:18] LABS: DRVV SCREEN 41.1 SEC
[2020-03-06 19:07] LABS: ANTI THROMBIN 3 ANTIGEN IMMUNO 93 % (72-124); ANTI THROMBIN 3 FUNCT ACTIVITY 95 % (75-135); CARDIOLIPIN IGA ANTIBODY <9 APL U/mL (0-11); CARDIOLIPIN IGG ANTIBODY <9 GPL U/mL (0-14); CARDIOLIPIN IGM ANTIBODY <9 MPL U/mL (0-12); PHOSPHOLIPIDS LEVEL 234 mg/dL (150-250); PROTEIN C FUNCTIONAL ACTIVITY 119 % (73-180); PROTEIN S FUNCTIONAL ACTIVITY 89 % (63-140)
== END 2020-03-02 15:23 | disposition home or self-care (01) ==
LOC: M ED 13:16
DX: I82.409 Acute embolism and thrombosis of unspecified deep veins of unspecified lower extremity (principal); F17.200 Nicotine dependence, unspecified, uncomplicated

== ENCOUNTER 2022-03-22 12:40 | Emergency (ER) | payer OTHER ==
[~2022-03-22] VITALS: Ht 170.2 cm; Wt 69.9 kg
[~2022-03-22 12:40] MED LIST changes: +ELIQ5TAB PO
[2022-03-22] MEDS ORDERED: ISOVUE-370 76% 100ML VIAL As Ordered ONE (15:37)
[2022-03-22 15:39] LABS: BASO % 0.3 % (0.0-1.0); EOS # 0.1 10^3/uL (0.0-0.5); EOS % 0.6 % (0.0-3.0); LYMPH # 2.8 10^3/uL (1.5-5.0); LYMPH % 29.2 % (24.0-44.0); MEAN CORPUSCULAR HGB CONC 33.3 g/dl (32.0-36.5); MEAN CORPUSCULAR VOLUME 92.9 fl (80.0-96.0); MONO # 0.6 10^3/uL (0.0-0.8); MONO % 6.2 % (2.0-8.0); NEUTROPHILS # 6.1 10^3/uL (1.5-8.5); NEUTROPHILS % 63.6 % (36.0-66.0); PLATELET COUNT, AUTOMATED 278 10^3/uL (150-450); RED BLOOD COUNT 5.49 10^6/uL (4.30-6.10); WHITE BLOOD COUNT 9.6 10^3/uL (4.0-10.0)
[2022-03-22 15:51] LABS: INR 0.99; PROTHROMBIN TIME 13.3 SECONDS (12.5-14.5)
[2022-03-22 16:04] LABS: ALBUMIN 5.1 G/DL (3.2-5.2)
[2022-03-22 16:10] LABS: BILIRUBIN,DIRECT 0.6 MG/DL (<0.4); BILIRUBIN,TOTAL 1.9 MG/DL (0.3-1.2)
[2022-03-22 16:34] VITALS: BP 112/68
== END 2022-03-22 16:34 | disposition home or self-care (01) ==
LOC: M ED 12:40
DX: S20.211A Contusion of right front wall of thorax, initial encounter (principal); S30.1XXA Contusion of abdominal wall, initial encounter; S16.1XXA Strain of muscle, fascia and tendon at neck level, initial encounter; V40.5XXA Car driver injured in collision with pedestrian or animal in traffic accident, initial encounter; Y92.410 Unspecified street and highway as the place of occurrence of the external cause; Y93.89 Activity, other specified; Y99.9 Unspecified external cause status

== ENCOUNTER 2023-08-05 13:21 | Inpatient (IN) | payer OTHER ==
[~2023-08-05] VITALS: Ht 170.2 cm; Wt 78.3 kg
[2023-08-05 14:29] LABS: BASO # 0.1 10^3/uL (0.0-0.2); BASO % 0.4 % (0.0-1.0); EOS # 0.1 10^3/uL (0.0-0.5); EOS % 0.4 % (0.0-3.0); HEMATOCRIT 46.1 % (42.0-52.0); HEMOGLOBIN 15.6 g/dl (13.5-17.5); LYMPH # 1.6 10^3/uL (1.5-5.0); LYMPH % 12.2 % (24.0-44.0); MEAN CORPUSCULAR HGB CONC 33.8 g/dl (32.0-36.5); MEAN CORPUSCULAR VOLUME 91.5 fl (80.0-96.0); MONO # 0.5 10^3/uL (0.0-0.8); MONO % 3.9 % (2.0-8.0); NEUTROPHILS % 82.7 % (36.0-66.0); PLATELET COUNT, AUTOMATED 349 10^3/uL (150-450); RED BLOOD COUNT 5.04 10^6/uL (4.30-6.10); WHITE BLOOD COUNT 13.2 10^3/uL (4.0-10.0)
[2023-08-05 14:41] LABS: INR 1.09; PARTIAL THROMBOPLASTIN TIME 26.5 SECONDS (24.8-34.2); PROTHROMBIN TIME 13.7 SECONDS (12.5-14.5)
[2023-08-05 14:51] LABS: ALBUMIN 4.8 G/DL (3.2-5.2); ALKALINE PHOSPHATASE 101 U/L (46-116); ALT/SGPT 19 U/L (7.0-40); AST/SGOT 24 U/L (<34); BILIRUBIN,DIRECT 0.3 MG/DL (<0.4); BILIRUBIN,TOTAL 0.9 MG/DL (0.3-1.2); BLOOD UREA NITROGEN 11 MG/DL (9-23); CALCIUM LEVEL 10.1 MG/DL (8.5-10.1); CARBON DIOXIDE LEVEL 28 MMOL/L (20-31); CHLORIDE LEVEL 106 MMOL/L (98-107); CREATININE FOR GFR 0.66 MG/DL (0.70-1.30); GLOMERULAR FILTRATION RATE > 60.0 (>60); GLUCOSE, FASTING 118 MG/DL (60-100); POTASSIUM SERUM 5.1 MMOL/L (3.5-5.1); SODIUM LEVEL 141 MMOL/L (136-145); TOTAL PROTEIN 8.1 G/DL (5.7-8.2)
[2023-08-05] MEDS ORDERED: ISOVUE-370 76% 100ML VIAL As Ordered ONE (16:16)
[2023-08-05 17:50] LABS: CPK CREATINE PHOSPHOKINASE 108 U/L (46-171); MB/CK RELATIVE INDEX 8.33 (< OR =4)
[2023-08-05] MEDS: HEPARIN DRIP 25,000 UNITS in IV 1 EA IV SCH ×2 (18:27→19:26)
[2023-08-05] MEDS: HEPARIN SOD (PORCINE) 5000UNITS/ML 1ML VIAL/SYRINGE IV ONE ×2 (18:28→19:25)
[2023-08-05] MEDS ORDERED: HEPARIN SOD (PORCINE) 5000UNITS/ML 1ML VIAL/SYRINGE IV PRN (18:45)
[2023-08-05] MEDS ORDERED: METH10CO PO (19:21)
[2023-08-05] MEDS ORDERED: HOME MED LIST COMPLETE! XX SCH (19:25)
[2023-08-05 20:00] VITALS: BP 119/78; TEMP 98.1; O2SAT 98
[2023-08-05 21:00] VITALS: BP 115/73; O2SAT 99
[2023-08-05 22:00] VITALS: O2SAT 98
[2023-08-05 23:00] VITALS: O2SAT 98
[2023-08-06] VITALS (17 sets, daily range): BP systolic 89–145; BP diastolic 57–82; TEMP 97.6–98.3; O2SAT 91–99
[2023-08-06 02:03] LABS: INR 1.23; PARTIAL THROMBOPLASTIN TIME 54.8 SECONDS (24.8-34.2); PROTHROMBIN TIME 15.1 SECONDS (12.5-14.5)
[2023-08-06 05:40] LABS: BLOOD UREA NITROGEN 10 MG/DL (9-23); CALCIUM LEVEL 8.7 MG/DL (8.5-10.1); CARBON DIOXIDE LEVEL 23 MMOL/L (20-31); CHLORIDE LEVEL 109 MMOL/L (98-107); CREATININE FOR GFR 0.57 MG/DL (0.70-1.30); GLOMERULAR FILTRATION RATE > 60.0 (>60); GLUCOSE, FASTING 110 MG/DL (60-100); POTASSIUM SERUM 4.3 MMOL/L (3.5-5.1); SODIUM LEVEL 141 MMOL/L (136-145)
[2023-08-06 08:46] LABS: INR 1.16; PARTIAL THROMBOPLASTIN TIME 48.4 SECONDS (24.8-34.2); PROTHROMBIN TIME 14.5 SECONDS (12.5-14.5)
[2023-08-06] MEDS: METHADONE 10MG TAB PO SCH (08:50)
[2023-08-07] VITALS (11 sets, daily range): BP systolic 101–111; BP diastolic 56–72; TEMP 97–97.9; O2SAT 94–98
[2023-08-07 05:26] LABS: INR 1.18; PARTIAL THROMBOPLASTIN TIME 66.6 SECONDS (24.8-34.2); PROTHROMBIN TIME 14.6 SECONDS (12.5-14.5)
[2023-08-07] MEDS: APIXABAN 5 MG TAB (ELIQUIS) PO ONE (14:52)
[2023-08-07] MEDS ORDERED: ELIQ5TAB PO (18:04)
[2023-08-07] MEDS: APIXABAN 5 MG TAB (ELIQUIS) PO SCH (20:28)
[2023-08-08] VITALS: BP 109/76; TEMP 98.4; O2SAT 98
[2023-08-08 04:00] VITALS: BP 127/71; TEMP 97.6; O2SAT 98
[2023-08-08 04:49] LABS: BASO # 0.1 10^3/uL (0.0-0.2); BASO % 0.5 % (0.0-1.0); EOS # 0.4 10^3/uL (0.0-0.5); EOS % 3.6 % (0.0-3.0); HEMATOCRIT 43.5 % (42.0-52.0); HEMOGLOBIN 14.8 g/dl (13.5-17.5); LYMPH # 3.5 10^3/uL (1.5-5.0); LYMPH % 35.1 % (24.0-44.0); MEAN CORPUSCULAR HEMOGLOBIN 30.6 pg (27.0-33.0); MEAN CORPUSCULAR VOLUME 90.1 fl (80.0-96.0); MONO # 0.6 10^3/uL (0.0-0.8); MONO % 6.1 % (2.0-8.0); NEUTROPHILS # 5.5 10^3/uL (1.5-8.5); NEUTROPHILS % 54.4 % (36.0-66.0); PLATELET COUNT, AUTOMATED 297 10^3/uL (150-450); RED BLOOD COUNT 4.83 10^6/uL (4.30-6.10); WHITE BLOOD COUNT 10.1 10^3/uL (4.0-10.0)
[2023-08-08 05:09] LABS: BLOOD UREA NITROGEN 13 MG/DL (9-23); CALCIUM LEVEL 8.8 MG/DL (8.5-10.1); CARBON DIOXIDE LEVEL 26 MMOL/L (20-31); CHLORIDE LEVEL 106 MMOL/L (98-107); GLOMERULAR FILTRATION RATE > 60.0 (>60); GLUCOSE, FASTING 95 MG/DL (60-100); POTASSIUM SERUM 4.3 MMOL/L (3.5-5.1); SODIUM LEVEL 138 MMOL/L (136-145)
[2023-08-08 08:00] VITALS: BP 116/67; TEMP 97.4; O2SAT 97
[2023-08-14] MEDS ORDERED: APIXABAN 5 MG TAB (ELIQUIS) PO SCH (09:00)
== END 2023-08-08 10:44 | disposition home or self-care (01) | DRG 134 ==
LOC: M ED 13:21 → M ED INP 18:34 → M ICU 19:58
PROVIDERS: ADMIT Internal Medicine Pulmonary Disease; ATTEND Internal Medicine
DX: I26.92 Saddle embolus of pulmonary artery without acute cor pulmonale (principal); F11.20 Opioid dependence, uncomplicated; I82.441 Acute embolism and thrombosis of right tibial vein; I82.432 Acute embolism and thrombosis of left popliteal vein; I82.413 Acute embolism and thrombosis of femoral vein, bilateral; R55 Syncope and collapse

== ENCOUNTER 2023-08-31 13:12 | Emergency (ER) | payer MEDICAID, OTHER, SELFPAY ==
[~2023-08-31] VITALS: Ht 170.2 cm; Wt 82.0 kg
[~2023-08-31 13:12] MED LIST changes: +METH10CO PO
[2023-08-31 15:21] LABS: BASO % 0.3 % (0.0-1.0); EOS # 0.1 10^3/uL (0.0-0.5); EOS % 1.8 % (0.0-3.0); HEMOGLOBIN 15.7 g/dl (13.5-17.5); LYMPH # 1.9 10^3/uL (1.5-5.0); LYMPH % 28.8 % (24.0-44.0); MEAN CORPUSCULAR HEMOGLOBIN 30.5 pg (27.0-33.0); MEAN CORPUSCULAR HGB CONC 33.4 g/dl (32.0-36.5); MEAN CORPUSCULAR VOLUME 91.3 fl (80.0-96.0); MONO # 0.3 10^3/uL (0.0-0.8); NEUTROPHILS # 4.3 10^3/uL (1.5-8.5); NEUTROPHILS % 63.9 % (36.0-66.0); PLATELET COUNT, AUTOMATED 198 10^3/uL (150-450); RED BLOOD COUNT 5.15 10^6/uL (4.30-6.10); WHITE BLOOD COUNT 6.6 10^3/uL (4.0-10.0)
[2023-08-31 15:42] LABS: BLOOD UREA NITROGEN 8 MG/DL (9-23); CALCIUM LEVEL 9.2 MG/DL (8.5-10.1); CARBON DIOXIDE LEVEL 28 MMOL/L (20-31); CHLORIDE LEVEL 103 MMOL/L (98-107); CREATININE FOR GFR 0.57 MG/DL (0.70-1.30); GLOMERULAR FILTRATION RATE > 60.0 (>60); GLUCOSE, FASTING 87 MG/DL (60-100); POTASSIUM SERUM 4.2 MMOL/L (3.5-5.1); SODIUM LEVEL 137 MMOL/L (136-145)
[2023-08-31 16:36] LABS: ALBUMIN 4.8 G/DL (3.2-5.2); ALKALINE PHOSPHATASE 93 U/L (46-116); ALT/SGPT 79 U/L (7.0-40); AST/SGOT 51 U/L (<34); BILIRUBIN,DIRECT 0.3 MG/DL (<0.4); BILIRUBIN,TOTAL 0.7 MG/DL (0.3-1.2); TOTAL PROTEIN 7.7 G/DL (5.7-8.2)
[2023-08-31 16:57] VITALS: BP 149/98; TEMP 97.1; O2SAT 100
[2023-08-31] MEDS ORDERED: HYDR12.55 PO (16:59)
== END 2023-08-31 17:04 | disposition home or self-care (01) ==
LOC: M ED 13:12
DX: R22.43 Localized swelling, mass and lump, lower limb, bilateral (principal); G40.909 Epilepsy, unspecified, not intractable, without status epilepticus; F19.10 Other psychoactive substance abuse, uncomplicated; F17.200 Nicotine dependence, unspecified, uncomplicated; Z86.718 Personal history of other venous thrombosis and embolism; Z79.01 Long term (current) use of anticoagulants; Z79.899 Other long term (current) drug therapy

== ENCOUNTER 2025-02-22 16:54 | Emergency (ER) | payer OTHER ==
[~2025-02-22] VITALS: Ht 170.2 cm; Wt 99.2 kg
[~2025-02-22 16:54] MED LIST changes: +HYDR12.55 PO
[2025-02-22] MEDS ORDERED: BUPR150T12 PO (17:03)
[2025-02-22] MEDS ORDERED: BUPR-766 PO (17:03)
[2025-02-22] MEDS ORDERED: SERO1TAB PO (17:03)
[2025-02-22 18:48] LABS: BASO # 0.0 10^3/uL (0.0-0.2); BASO % 0.3 % (0.0-1.0); EOS # 0.1 10^3/uL (0.0-0.5); EOS % 1.8 % (0.0-3.0); LYMPH # 2.0 10^3/uL (1.5-5.0); LYMPH % 32.7 % (24.0-44.0); MONO # 0.6 10^3/uL (0.0-0.8); MONO % 8.8 % (2.0-8.0); NEUTROPHILS # 3.5 10^3/uL (1.5-8.5); NEUTROPHILS % 56.2 % (36.0-66.0); PLATELET COUNT, AUTOMATED 253 10^3/uL (150-450)
[2025-02-22] MEDS: LIDOCAINE 2% W/EPINEPHrine 20 ML VIAL **PRES FREE INJ ONE (18:55)
[2025-02-22 19:11] LABS: CALCIUM LEVEL 7.3 MG/DL (8.5-10.1); CARBON DIOXIDE LEVEL 27 MMOL/L (20-31); CHLORIDE LEVEL 107 MMOL/L (98-107); CREATININE FOR GFR 0.63 MG/DL (0.70-1.30); GLOMERULAR FILTRATION RATE > 90.0 (>60); POTASSIUM SERUM 3.9 MMOL/L (3.5-5.1); SODIUM LEVEL 143 MMOL/L (136-145)
[2025-02-22] MEDS ORDERED: CEPH500C PO (19:24)
[2025-02-22] MEDS: CEPHALEXIN 500 MG CAP PO ONE (19:30)
[2025-02-22 19:47] VITALS: BP 132/71; TEMP 98; O2SAT 97
== END 2025-02-22 19:48 | disposition home or self-care (01) ==
LOC: M ED 16:54
DX: L02.411 Cutaneous abscess of right axilla (principal); Z86.711 Personal history of pulmonary embolism; Z86.718 Personal history of other venous thrombosis and embolism; Z79.01 Long term (current) use of anticoagulants; Z79.899 Other long term (current) drug therapy; Z79.2 Long term (current) use of antibiotics